=== PATIENT | male | born 1990 | race Two or more races ===

== ENCOUNTER 2025-06-19 21:56 | Emergency (ER) | payer MEDICAID, OTHER ==
[~2025-06-19] VITALS: Ht 304.8 cm; Wt 104.9 kg
[2025-06-20] MEDS ORDERED: IBUP1TAB5 PO (02:21)
[2025-06-20] MEDS ORDERED: AUG875T PO (02:21)
[2025-06-20 02:35] VITALS: BP 121/77; PULSE 84; RESP 16; TEMP 98.8; O2SAT 99
[2025-06-20] MEDS: HYDROcodone-ACET 10/325MG TAB PO ONE (02:38)
[2025-06-20] MEDS: AMOXICILLIN/CLAVUL 875 MG TAB PO ONE (02:38)
--- NOTE | 2025-06-20 02:50 | ED.PDOC ---
History of Present Illness HPI Comments 34 y/o deaf M presents with sister for c/c of fever and right ear pain with drainage. Patient endorses on having symptoms since yesterday. States on noticing blood drainage with ear that has subsided since upon arrival to ED. Denial of any further acute symptoms. Chief Complaint: Earache Time Seen by MD: 02:20 Reviewed Notes: Nurses Notes, Medications, Allergies Home Meds Active Scripts Ibuprofen Micronized (Ibuprofen) 600 Mg Tab, 600 MG PO Q8HP PRN, #20 TAB Prov:CELI ECHOLS MD 06/20/25 Amoxicillin & Pot Clavulanate (AUGMENTIN TABLET) 875 Mg Tb, 875 MG PO BID for 10 Days, #20 TAB Prov:CELI ECHOLS MD 06/20/25 Information Source: Patient Mode of Arrival: Ambulatory Severity: Moderate Timing: Hours Duration: Since onset Prehospital treatment: None Past Medical History Past Medical History (Other): deaf Surgical History: Denies all surgeries Family History Family History: Unknown Social History Smoker: Non-Smoker Alcohol: Denies ETOH Use Drugs: Denies Drug Use Lives In: Home All Other Systems: Reviewed and Negative (As per HPI) Physical Exam General Appearance: No Apparent Distress, Normal, Other () HEENT: Pharynx Normal, TM Abnormal (R) (erythema and purulent drainage ) Neck: Full Range of Motion, Non-Tender, Normal, Normal Inspection Respiratory: Chest Non-Tender, Lungs Clear, No Accessory Muscle Use, No Respiratory Distress, Normal Breath Sounds Cardiovascular: No Edema, No JVD, No Murmur, No Gallop, Normal Peripheral Pulses, Regular Rate/Rhythm Breast Exam: Deferred Gastrointestinal: No Organomegaly, Non Tender, No Pulsatile Mass, Normal Bowel Sounds, Soft Genitalia: Deferred Pelvic: Deferred Rectal: Deferred Extremities: No calf tenderness, Normal capillary refill, Normal inspection, Normal range of motion, Non-tender, No pedal edema Musculoskeletal : Apperance: Normal 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 Was a procedure done?: No Differential Dx Considerations may include: ruptured TM, URI, viral, otitis media, among others X-Ray, Labs, Meds, VS Vital Signs Date Time Temp Pulse Resp B/P (MAP) Pulse Ox O2 Delivery O2 Flow Rate FiO2 06/20/25 02:35 98.8 84 16 121/77 (92) 99 98.8 06/20/25 02:35 Room Air* 0 21 06/19/25 22:04 98.0 89 16 131/91 99 98.0 Current Medications Medications (Trade) Dose Ordered Sig/[place] Route Start Time Stop Time Status Last Admin Amoxicillin/ Clavulanate Potassium (Augmentin Tablet) 875 mg ONCE ONCE PO 06/20/25 02:30 06/20/25 02:31 DC 06/20/25 02:38 Acetaminophen/ Hydrocodone Bitart (Wilcox 10/325MG Tab) 1 tab ONCE ONCE PO 06/20/25 02:30 06/20/25 02:31 DC 06/20/25 02:38 Time of 1ST Reevaluation: 02:50 Reevaluation 1ST: Unchanged Patient Education/Counseling: Diagnosis, Treatment, Need For Follow Up Family Education/Counseling: Diagnosis, Treatment, Need For Follow Up SEPSIS Sepsis Screen Date sepsis recognized/suspect: Jun 19, 2025 Time Sepsis recognized/suspect: 2207 Recent Procedure: No On Antibiotic Therapy: No Respiratory Rate >20: No Heart Rate >90: No Temp<36 C (96.8 F) or >38.3 C: No SBP <90 or MAP <65 mmHG: No New Acute Mental Status Change: No Is the patient on CPAP, BIPAP,: No Vital Signs Date Time Temp Pulse Resp B/P (MAP) Pulse Ox O2 Delivery O2 Flow Rate FiO2 06/20/25 02:35 98.8 84 16 121/77 (92) 99 98.8 06/20/25 02:35 Room Air* 0 06/19/25 22:04 98.0 89 16 131/91 99 98.0 Medications Medications Dose Ordered Sig/[place] Route Start Time Stop Time Status Last Admin Dose Admin Acetaminophen/ Hydrocodone Bitart 1 tab ONCE ONCE PO 06/20/25 02:30 06/20/25 02:31 DC 06/20/25 02:38 Amoxicillin/ Clavulanate Potassium 875 mg ONCE ONCE PO 06/20/25 02:30 06/20/25 02:31 DC 06/20/25 02:38 Departure 1 Departure Time of Disposition: 04:30 Impression: Primary Impression: Right otitis media with spontaneous rupture of eardrum Additional Impression: Right otitis media Disposition: 01 HOME / SELF CARE / HOMELESS Condition: Stable Additional Instructions: Follow up with your primary physician Return to the Emergency Department for any worsening symptoms or concerns e-Prescriptions Ibuprofen Micronized (Ibuprofen) 600 Mg Tab 600 MG PO Q8HP PRN, #20 TAB Prov: CELI ECHOLS MD 06/20/25 Amoxicillin & Pot Clavulanate (AUGMENTIN TABLET) 875 Mg Tb 875 MG PO BID for 10 Days, #20 TAB Prov: CELI ECHOLS MD 06/20/25 Discharged With: Relative Critical Care Note Critical Care Time?: No Stability Stability form required: No Heart Score Heart Score: Heart Score Response (Comments) Value History N/A 0 EKG N/A 0 Age N/A 0 Risk Factors N/A 0 Troponin N/A 0 Total 0 I personally scribed for CELI ECHOLS MD ([email or web address]) on 06/20/25 at 02:50. Electronically submitted by Reuben Hanley ([email or web address]). CELI ECHOLS MD Jun 20, 2025 02:50
== END 2025-06-20 03:40 | disposition home or self-care (01) ==
LOC: ER 21:56
DX: H66.91 Otitis media, unspecified, right ear (principal); H91.90 Unspecified hearing loss, unspecified ear; Z79.899 Other long term (current) drug therapy